=== PATIENT | male | born 2000 | race Caucasian/White ===

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

== ENCOUNTER 2020-05-01 22:48 | Emergency (ER) | payer OTHER ==
[2020-05-01 22:54] VITALS: TEMP 98
[2020-05-01] MEDS ORDERED: LORazepam 2 MG/ML INJ IV STA (23:02)
[2020-05-01] MEDS ORDERED: FAMOTIDINE 20 MG/2 ML VIAL IV STA (23:02)
[2020-05-01] MEDS ORDERED: diphenhydrAMINE 50 MG/ML 1 ML VIAL IVP STA (23:02)
[2020-05-01] MEDS ORDERED: SODIUM CHLORIDE 0.9% 500 ML 500 ML IV ONE (23:02)
[2020-05-01] MEDS ORDERED: methylPREDNISolone SOD SUCCI 125 MG/2 ML VIAL IV STA (23:02)
--- NOTE | 2020-05-01 23:41 | XR ---
EXAMINATION TYPE: XR chest 2V DATE OF EXAM: 05/01/2020 COMPARISON: NONE HISTORY: Anxiety TECHNIQUE: 2 views FINDINGS: Heart and mediastinum are normal. Lungs are clear. Diaphragm is normal. Bony thorax appears normal. Pulmonary vascularity is normal. IMPRESSION: Normal chest.
[2020-05-02] LABS: Amphetamine Screen,Urine Not Detected (NotDetected); Barbiturate Screen,Urine Not Detected (NotDetected); Benzodiazepines Screen,Urine Not Detected (NotDetected); Cocaine Screen,Urine Not Detected (NotDetected); Methadone Screen, Urine Not Detected (NotDetected); Opiate Screen,Urine Not Detected (NotDetected); Oxycodone Screen, Urine Not Detected (NotDetected); Phencyclidine Screen,Urine Not Detected (NotDetected); Tricyclic Antidepressant,Urine Not Detected (NotDetected); Urn Cannabinoid Scrn Not Detected (NotDetected)
--- NOTE | 2020-05-02 00:15 | ED ---
General Adult HPI - General Chief complaint: ENT Stated complaint: LASHAWN Time Seen by Provider: 05/01/20 22:54 Source: patient Mode of arrival: ambulatory Limitations: no limitations - History of Present Illness Initial comments: 19-year-old male presenting for dry mouth feels like something is in throat. Patient with history of schizophrenia presenting with brother for chief complaint of patient complaining of dry mouth and like something is in his throat causing difficulty in breathing. Patient's brother states the patient smoked weed for the first time in a long time just prior to arrival, he states shortly after smoking the weed patient was stating his throat was dry and hurt and he thought he was going to and could not breath. He states patient also drank 1 beer which is also no usual for him. Patient brother states he believes this is all related to him smoking marijuana. Patient denies feeling like he is "short of breath in my chest" he states it is all in his "throat". Denies lip, tongue swelling, denies wheezing, nausea, vomiting, diarrhea. Denies chest pain, hemoptysis, leg swelling. patient denies suicidal or homicidal ideations. Patient appears nontoxic, he appear anxious and his HR is elevated. he does not appear in respiratory distress. RR WNL, oxygenating well on room air. - Related Data Previous Rx's Medication Instructions Recorded Nicotine 14Mg/24Hr Patch [Habitrol] 1 patch TRANSDERM DAILY #14 patch 01/27/19 Paliperidone IM [Invega Sustenna] 117 mg IM Q28D #1 syr 01/27/19 Allergies Allergy/AdvReac Type Severity Reaction Status Date / Time Penicillins Allergy Anaphylaxis Verified 05/01/20 22:54 Review of Systems ROS Statement: Those systems with pertinent positive or pertinent negative responses have been documented in the HPI. ROS Other: All systems not noted in ROS Statement are negative. Past Medical History Past Medical History: No Reported History History of Any Multi-Drug Resistant Organisms: None Reported Past Surgical History: No Surgical Hx Reported Past Anesthesia/Blood Transfusion Reactions: No Reported Reaction Past Psychological History: Schizophrenia Smoking Status: Current every day smoker Past Alcohol Use History: None Reported Past Drug Use History: Marijuana General Exam - General Exam Comments Initial Comments: General: The patient is awake and alert, in no distress but does appear anxious Eye: +4 mm pupils are equal, round and reactive to light, extra-ocular movements are intact. No nystagmus. There is normal conjunctiva bilaterally. No signs of icterus. Ears, nose, mouth and throat: There are moist mucous membranes and no oral lesions. No lip or tongue swelling. Neck: The neck is supple, there is no tenderness or JVD. No stridor Cardiovascular: There is a regular rate and rhythm. No murmur, rub or gallop is appreciated. Respiratory: Lungs are clear to auscultation, respirations are non-labored, breath sounds are equal. No wheezes, stridor, rales, or rhonchi. No retractions no abdominal breathing Gastrointestinal: Soft, non-distended, non-tender abdomen without masses or organomegaly noted. There is no rebound or guarding present. Musculoskeletal: Normal ROM, no tenderness. Strength 5/5. Sensation intact. Radial and DP pulses equal bilaterally 2+. Neurological: A&O x 3. CN II-XII intact grossly, There are no obvious motor or sensory deficits. Coordination appears grossly intact. Speech is normal. Skin: Skin is warm and dry and no rashes or lesions are noted. No calf pain or swelling. Psychiatric: Cooperative, appropriate mood & affect, normal judgment. Limitations: no limitations Course Vital Signs 05/01/20 05/01/20 05/02/20 22:49 23:51 00:33 Temperature 98 F Pulse Rate 140 H 124 H 114 H Respiratory 20 16 Rate Blood Pressure 151/69 123/63 O2 Sat by Pulse 98 100 Oximetry 05/02/20 01:10 Temperature Pulse Rate 120 H Respiratory 16 Rate Blood Pressure 125/68 O2 Sat by Pulse 98 Oximetry Medical Decision Making - Medical Decision Making 19-year-old male presenting for dry, painful throat, and LASHAWN in throat after smoking marijuana for the first time in a while. Patient brother states he was normal before he smoked the marijuana. he states he is acting like he has in the past when he has smoked marijuana. patient does appear paranoid, suspect temporary drug induced psychosis/anxiety. Lungs clear. No stridor. CXR clear. Oxygenating well on room air. No lip or tongue swelling. HR improved throughout visit. Denies suicidal or homicidal ideations. Patient brother states that he feels safe taking patient into his care to get him home for evening. I do feel this is an anxiety reaction to marijuana use. Patient is to return if symptoms are persistent/or family feels he is a danger to himself/other-at this time this is not apparent. Patient discharged appearing well. Dr. Del Angel agreeable to care plan. - Lab Data Lab Results 05/01/20 Range/Units 23:26 Urine Opiates Screen Not Detected (NotDetected) Ur Oxycodone Screen Not Detected (NotDetected) Urine Methadone Screen Not Detected (NotDetected) Ur Propoxyphene Screen Not Detected (NotDetected) Ur Barbiturates Screen Not Detected (NotDetected) U Tricyclic Antidepress Not Detected (NotDetected) Ur Phencyclidine Scrn Not Detected (NotDetected) Ur Amphetamines Screen Not Detected (NotDetected) U Methamphetamines Scrn Not Detected (NotDetected) U Benzodiazepines Scrn Not Detected (NotDetected) Urine Cocaine Screen Not Detected (NotDetected) U Marijuana (THC) Screen Not Detected (NotDetected) Disposition Clinical Impression: Marijuana use, Anxiety Disposition: HOME SELF-CARE Condition: Good Instructions (If sedation given, give patient instructions): Cannabis Abuse (ED) Additional Instructions: Please use medication as discussed. Please follow-up with family doctor in the next 2 days. Please return to emergency room if the symptoms increase or worsen or for any other concerns. Is patient prescribed a controlled substance at d/c from ED?: No Referrals: Clayton Antoine MD [Primary Care Provider] - 1-2 days Time of Disposition: 00:55
[2020-05-02 00:33] VITALS: RESP 16
[2020-05-02 01:12] VITALS: BP 125/68; PULSE 120
== END 2020-05-02 01:12 | disposition home or self-care (01) ==
LOC: EC 22:48
DX: F12.90 Cannabis use, unspecified, uncomplicated (principal); F41.9 Anxiety disorder, unspecified; R68.2 Dry mouth, unspecified; R06.00 Dyspnea, unspecified; F20.9 Schizophrenia, unspecified; F17.200 Nicotine dependence, unspecified, uncomplicated; Z88.0 Allergy status to penicillin
CPT/HCPCS: 93005; 80306; 71046; 99285; 96374; 96375 ×3; J2060; J1200; J2930

== ENCOUNTER 2020-05-04 23:46 | Emergency (ER) | payer OTHER ==
[2020-05-05 00:19] VITALS: RESP 18; TEMP 97.8
--- NOTE | 2020-05-05 00:44 | XR ---
EXAMINATION TYPE: XR soft tissue neck DATE OF EXAM: 05/05/2020 COMPARISON: NONE HISTORY: Short of breath TECHNIQUE: 2 views FINDINGS: Epiglottis appears normal. Tonsils and adenoids are within normal limits. Prevertebral soft tissues are intact. Subglottic trachea appears intact. There is no sign of a foreign body. IMPRESSION: Negative exam.
--- NOTE | 2020-05-05 00:47 | XR ---
EXAMINATION TYPE: XR chest 1V DATE OF EXAM: 05/05/2020 COMPARISON: 05/01/2020 HISTORY: Short of breath TECHNIQUE: Single view FINDINGS: Heart and mediastinum are normal. Lungs are clear. Diaphragm is normal. Bony thorax appears normal. IMPRESSION: Normal chest. No change.
[2020-05-05 01:38] LABS: Basophils # (A) 0.1 k/uL (0-0.2); Basophils % (A) 0 %; Eosinophils # (A) 0.3 k/uL (0-0.7); Eosinophils % (A) 3 %; HGB 14.8 gm/dL (13.0-17.5); Lymphocytes # (A) 3.8 k/uL (1.0-4.8); Lymphocytes % (A) 31 %; MCH 30.1 pg (25.0-35.0); MCHC 33.6 g/dL (31.0-37.0); MCV 89.6 fL (80.0-100.0); Mean Platelet Volume 7.8; Monocytes # (A) 0.7 k/uL (0-1.0); Monocytes % (A) 6 %; Neutrophils # (A) 7.2 k/uL (1.3-7.7); Neutrophils % (A) 59 %; Platelet Count 280 k/uL (150-450); RBC 4.92 m/uL (4.30-5.90); RDW 13.5 % (11.5-15.5); WBC 12.2 k/uL (4.0-11.0)
[2020-05-05 01:52] LABS: Appearance,Urine Clear (Clear); Bilirubin,Urine Negative (Negative); Blood,Urine Negative (Negative); Color,Urine Yellow; Glucose,Urine (UA) Negative (Negative); Ketones,Urine Negative (Negative); Leukocyte Esterase,Urine Negative (Negative); Nitrite,Urine Negative (Negative); PH, Urine 6.5 (5.0-8.0); Protein,Urine Negative (Negative); Specific Gravity,Urine 1.017 (1.001-1.035)
[2020-05-05 01:56] LABS: ALT 29 U/L (4-49); AST 22 U/L (17-59); African American GFR (CKD) >90 (>60 ml/min/1.73 sqM); Alkaline Phosphatase 90 U/L (38-126); Anion Gap 8 mmol/L; Blood Urea Nitrogen 13 mg/dL (9-20); Calcium 9.3 mg/dL (8.4-10.2); Carbon Dioxide 24 mmol/L (22-30); Chloride 107 mmol/L (98-107); Glucose 137 mg/dL (74-99); Non-African American GFR(CKD) >90 (>60 ml/min/1.73 sqM); Potassium 3.6 mmol/L (3.5-5.1); Sodium 139 mmol/L (137-145); Total Bilirubin 0.3 mg/dL (0.2-1.3); Total Protein 6.4 g/dL (6.3-8.2)
[2020-05-05 02:04] LABS: Amphetamine Screen,Urine Not Detected (NotDetected); Barbiturate Screen,Urine Not Detected (NotDetected); Benzodiazepines Screen,Urine Not Detected (NotDetected); Cocaine Screen,Urine Not Detected (NotDetected); Methadone Screen, Urine Not Detected (NotDetected); Opiate Screen,Urine Not Detected (NotDetected); Oxycodone Screen, Urine Not Detected (NotDetected); Phencyclidine Screen,Urine Not Detected (NotDetected); Tricyclic Antidepressant,Urine Not Detected (NotDetected); Urn Cannabinoid Scrn Detected (NotDetected)
--- NOTE | 2020-05-05 02:45 | ED ---
Psych HPI <Fernando Oglesby - Last Filed: 05/05/20 03:54> - General Source: patient, family, EMS Mode of arrival: EMS <Mikaela Cavazos - Last Filed: 05/06/20 10:08> - General Chief Complaint: Psychiatric Symptoms Stated Complaint: Psych Time Seen by Provider: 05/04/20 23:53 - History of Present Illness Initial Comments: 19-year-old male presents emergency department today for chief complaint of throat swelling difficulty breathing. He states since November he has had difficulty breathing. Patient states he feels like his throat was closing all the time. He states he was the other day after smoking marijuana admits that he was high and states that this exacerbated the sensation. Patient states that his family thinks he is crazy but he has really feeling like he is going to . Patient denies any chest pain he does painting inspiration he denies hemoptysis fevers cough he does a lower extremity swelling. Patient denies any nausea or vomiting. Patient's mother provided additional history stating the patient is very paranoid he is pacing often at home he does of history of schizophrenia she states she feels like he is beginning to develop a psychosis. She states he did get his injection yesterday. She states she does not think he is at risk of hurting himself or others at this point and does not want to petition him and is aware he could leave at free will. Patient is agreeable to psychiatric evaluation. (Mikaela Cavazos) - Related Data Previous Rx's Medication Instructions Recorded Nicotine 14Mg/24Hr Patch [Habitrol] 1 patch TRANSDERM DAILY #14 patch 01/27/19 Paliperidone IM [Invega Sustenna] 117 mg IM Q28D #1 syr 01/27/19 Allergies Allergy/AdvReac Type Severity Reaction Status Date / Time Penicillins Allergy Anaphylaxis Verified 05/01/20 22:54 Review of Systems ROS Other: All systems not noted in ROS Statement are negative. <FredalatrellFernando - Last Filed: 05/05/20 03:54> ROS Other: All systems not noted in ROS Statement are negative. <Mikaela Cavazos - Last Filed: 05/06/20 10:08> ROS Statement: Those systems with pertinent positive or pertinent negative responses have been documented in the HPI. Past Medical History Past Medical History: No Reported History Additional Past Medical History / Comment(s): Swollen Lymphnodes History of Any Multi-Drug Resistant Organisms: None Reported Past Surgical History: No Surgical Hx Reported Past Anesthesia/Blood Transfusion Reactions: No Reported Reaction Past Psychological History: ADD/ADHD, Schizophrenia Smoking Status: Current every day smoker Past Alcohol Use History: Occasional Past Drug Use History: Marijuana <Mikeala Cavazos - Last Filed: 05/06/20 10:08> General Exam Limitations: no limitations <Mikaela Cavazos Catalina - Last Filed: 05/06/20 10:08> - General Exam Comments Initial Comments: General: The patient is awake and alert, in no distress Eye: Pupils are equal, round and reactive to light, extra-ocular movements are intact. No nystagmus. There is normal conjunctiva bilaterally. No signs of icterus. Ears, nose, mouth and throat: There are moist mucous membranes and no oral lesions. Neck: The neck is supple, there is no tenderness or JVD. Cardiovascular: There is a regular rate and rhythm. No murmur, rub or gallop is appreciated. Respiratory: Lungs are clear to auscultation, respirations are non-labored, breath sounds are equal. No wheezes, stridor, rales, or rhonchi. Gastrointestinal: Soft, non-distended, non-tender abdomen without masses or organomegaly noted. There is no rebound or guarding present. Musculoskeletal: Normal ROM, no tenderness. Strength 5/5. Sensation intact. Radial pulses equal bilaterally 2+. Neurological: A&O x 3. CN II-XII intact grossly, There are no obvious motor or sensory deficits. Coordination appears grossly intact. Speech is normal. Skin: Skin is warm and dry and no rashes or lesions are noted. Psychiatric: Cooperative, appropriate mood & affect, normal judgment. Reviewed EKG with my attending who feels ST changes likely early repolarization. (Mikaela Cavazos) Course <Mikaela Cavazos Catalina - Last Filed: 05/06/20 10:08> Vital Signs 05/04/20 05/05/20 23:52 03:00 Temperature 97.8 F Pulse Rate 117 H 101 H Respiratory 18 18 Rate Blood Pressure 153/81 127/87 O2 Sat by Pulse 97 98 Oximetry - Reevaluation(s) Reevaluation #1: Med clear for EPS evaluation; EPS was notified. 05/05/20 02:20 (Mikaela Cavazos) Reevaluation #2: 3AM pt was signed out to Dr Oglesby pending EPS evaluation (Mikaela Cavazos) Medical Decision Making - Lab Data Result diagrams: 05/05/20 01:13 05/05/20 01:13 <Fernando Oglesby - Last Filed: 05/05/20 03:54> - Lab Data Result diagrams: 05/05/20 01:13 05/05/20 01:13 <Mikaela Cavazos - Last Filed: 05/06/20 10:08> - Medical Decision Making 19yo male presents emergency department for sensation throat is closing, dyspnea. W/u benign. Early repolarization with (-) trop, no chest pressure/pain. Patient cleared for EPS evaluation (Mikaela Cavazos) - Lab Data Lab Results 05/05/20 05/05/20 05/05/20 Range/Units 00:20 01:13 01:13 WBC 12.2 H (4.0-11.0) k/uL RBC 4.92 (4.30-5.90) m/uL Hgb 14.8 (13.0-17.5) gm/dL Hct 44.0 (39.0-53.0) % MCV 89.6 (80.0-100.0) fL MCH 30.1 (25.0-35.0) pg MCHC 33.6 (31.0-37.0) g/dL RDW 13.5 (11.5-15.5) % Plt Count 280 (150-450) k/uL MPV 7.8 Neutrophils % 59 % Lymphocytes % 31 % Monocytes % 6 % Eosinophils % 3 % Basophils % 0 % Neutrophils # 7.2 (1.3-7.7) k/uL Lymphocytes # 3.8 (1.0-4.8) k/uL Monocytes # 0.7 (0-1.0) k/uL Eosinophils # 0.3 (0-0.7) k/uL Basophils # 0.1 (0-0.2) k/uL Sodium 139 (137-145) mmol/L Potassium 3.6 (3.5-5.1) mmol/L Chloride 107 (98-107) mmol/L Carbon Dioxide 24 (22-30) mmol/L Anion Gap 8 mmol/L BUN 13 (9-20) mg/dL Creatinine 0.60 L (0.66-1.25) mg/dL Est GFR (CKD-EPI)AfAm >90 (>60 ml/min/1.73 sqM) Est GFR (CKD-EPI)NonAf >90 (>60 ml/min/1.73 sqM) Glucose 137 H (74-99) mg/dL Calcium 9.3 (8.4-10.2) mg/dL Total Bilirubin 0.3 (0.2-1.3) mg/dL AST 22 (17-59) U/L ALT 29 (4-49) U/L Alkaline Phosphatase 90 (38-126) U/L Troponin I (0.000-0.034) ng/mL Total Protein 6.4 (6.3-8.2) g/dL Albumin 4.0 (3.5-5.0) g/dL TSH 2.160 (0.465-4.680) mIU/L Urine Color Yellow Urine Appearance Clear (Clear) Urine pH 6.5 (5.0-8.0) Ur Specific [place] 1.017 (1.001-1.035) Urine Protein Negative (Negative) Urine Glucose (UA) Negative (Negative) Urine Ketones Negative (Negative) Urine Blood Negative (Negative) Urine Nitrite Negative (Negative) Urine Bilirubin Negative (Negative) Urine Urobilinogen 2.0 (<2.0) mg/dL Ur Leukocyte Esterase Negative (Negative) Urine Opiates Screen Not Detected (NotDetected) Ur Oxycodone Screen Not Detected (NotDetected) Urine Methadone Screen Not Detected (NotDetected) Ur Propoxyphene Screen Not Detected (NotDetected) Ur Barbiturates Screen Not Detected (NotDetected) U Tricyclic Antidepress Not Detected (NotDetected) Ur Phencyclidine Scrn Not Detected (NotDetected) Ur Amphetamines Screen Not Detected (NotDetected) U Methamphetamines Scrn Not Detected (NotDetected) U Benzodiazepines Scrn Not Detected (NotDetected) Urine Cocaine Screen Not Detected (NotDetected) U Marijuana (THC) Screen Detected H (NotDetected) 05/05/20 Range/Units 01:13 WBC (4.0-11.0) k/uL RBC (4.30-5.90) m/uL Hgb (13.0-17.5) gm/dL Hct (39.0-53.0) % MCV (80.0-100.0) fL MCH (25.0-35.0) pg MCHC (31.0-37.0) g/dL RDW (11.5-15.5) % Plt Count (150-450) k/uL MPV Neutrophils % % Lymphocytes % % Monocytes % % Eosinophils % % Basophils % % Neutrophils # (1.3-7.7) k/uL Lymphocytes # (1.0-4.8) k/uL Monocytes # (0-1.0) k/uL Eosinophils # (0-0.7) k/uL Basophils # (0-0.2) k/uL Sodium (137-145) mmol/L Potassium (3.5-5.1) mmol/L Chloride (98-107) mmol/L Carbon Dioxide (22-30) mmol/L Anion Gap mmol/L BUN (9-20) mg/dL Creatinine (0.66-1.25) mg/dL Est GFR (CKD-EPI)AfAm (>60 ml/min/1.73 sqM) Est GFR (CKD-EPI)NonAf (>60 ml/min/1.73 sqM) Glucose (74-99) mg/dL Calcium (8.4-10.2) mg/dL Total Bilirubin (0.2-1.3) mg/dL AST (17-59) U/L ALT (4-49) U/L Alkaline Phosphatase (38-126) U/L Troponin I <0.012 (0.000-0.034) ng/mL Total Protein (6.3-8.2) g/dL Albumin (3.5-5.0) g/dL TSH (0.465-4.680) mIU/L Urine Color Urine Appearance (Clear) Urine pH (5.0-8.0) Ur Specific [place] (1.001-1.035) Urine Protein (Negative) Urine Glucose (UA) (Negative) Urine Ketones (Negative) Urine Blood (Negative) Urine Nitrite (Negative) Urine Bilirubin (Negative) Urine Urobilinogen (<2.0) mg/dL Ur Leukocyte Esterase (Negative) Urine Opiates Screen (NotDetected) Ur Oxycodone Screen (NotDetected) Urine Methadone Screen (NotDetected) Ur Propoxyphene Screen (NotDetected) Ur Barbiturates Screen (NotDetected) U Tricyclic Antidepress (NotDetected) Ur Phencyclidine Scrn (NotDetected) Ur Amphetamines Screen (NotDetected) U Methamphetamines Scrn (NotDetected) U Benzodiazepines Scrn (NotDetected) Urine Cocaine Screen (NotDetected) U Marijuana (THC) Screen (NotDetected) Disposition <Fernando Oglesby - Last Filed: 05/05/20 03:54> Is patient prescribed a controlled substance at d/c from ED?: No Time of Disposition: 05:00 (05/04/2020 Dr oglesby) <Mikaela Cavazos - Last Filed: 05/06/20 10:08> Clinical Impression: Anxiety Disposition: HOME SELF-CARE Condition: Fair Instructions (If sedation given, give patient instructions): Anxiety (ED) Referrals: Clayton Antoine MD [Primary Care Provider] - 1-2 days
[2020-05-05 03:03] VITALS: BP 127/87; PULSE 101
== END 2020-05-05 04:00 | disposition home or self-care (01) ==
LOC: EC 23:46
DX: F41.9 Anxiety disorder, unspecified (principal); R06.02 Shortness of breath; R09.89 Other specified symptoms and signs involving the circulatory and respiratory systems; F20.9 Schizophrenia, unspecified; F90.9 Attention-deficit hyperactivity disorder, unspecified type; F17.200 Nicotine dependence, unspecified, uncomplicated; Z88.0 Allergy status to penicillin; F12.90 Cannabis use, unspecified, uncomplicated
CPT/HCPCS: 36415; 70360; 71045; 80053; 80306; 81003; 82075; 84443; 84484; 85025; 93005; 99285

== ENCOUNTER 2021-07-13 06:25 | Emergency (ER) | payer OTHER ==
[2021-07-13 06:29] VITALS: TEMP 98.4
[2021-07-13] MEDS ORDERED: IBUPROFEN 800 MG TAB PO STA (06:37)
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
--- NOTE | 2021-07-13 06:57 | XR ---
EXAMINATION TYPE: XR hand complete RT DATE OF EXAM: 07/13/2021 COMPARISON: NONE HISTORY: Pain TECHNIQUE: 3 views FINDINGS: There is a slightly impacted transverse fracture of the neck of the fifth metacarpal. There is no dislocation. The fingers appear intact. Carpal bones are intact. IMPRESSION: Acute fifth metacarpal boxer fracture.
[2021-07-13 07:29] VITALS: BP 137/73; PULSE 96; RESP 18
== END 2021-07-13 08:43 | disposition home or self-care (01) ==
LOC: EC 06:25
DX: T14.90XA Injury, unspecified, initial encounter (principal)